=== PATIENT | male | born 1945 | race Caucasian/White ===

== ENCOUNTER → 2016-07-24 06:33 | Day surgery (SDC) | payer MEDICARE, OTHER ==
[~2016-07-24 06:33] MED LIST: Acetaminophen TAB* 325 MG PO PRN; Aspirin EC Low Dose* 81 MG TAB.EC PO SCH; Atorvastatin* 10 MG TAB PO SCH; Buffered Lidocaine 1% SYR 3ML* 3 ML/SYR SYRINGE INTRADERM ONE; Buffered Lidocaine 1% SYR 3ML* 3 ML/SYR SYRINGE ONE; Bupivacaine 0.5% W/EPI SDV* 30 ML VIAL ONE; Dexamethasone IV* 4 MG/ML 1 ML (4 MG) ONE; HYDROcodone/ACETAMIN 5-325 MG* 1 TAB ONE; HYDROcodone/ACETAMIN 5-325 MG* 1 TAB PO PRN; Ketorolac INJ* 30 MG/ML 1 ML VIAL ONE; Lidocaine 2% PF * 5 ML VIAL ONE; Lisinopril TAB* 10 MG PO SCH; Midazolam* 1 MG/ML 2 ML VIAL (2 MG) ONE; Ondansetron INJ* 2 MG/ML VIAL IV PRN; PROCHLORPERAZINE INJ 5 MG/ML 2 ML VIAL IV PRN; Propofol* 10 MG/ML 20 ML BTL IV PUSH ONE; Rocuronium* 10 MG/ML VIAL ONE; ceFAZolin 2 GM PREMIX (*) 2 GM/50 ML BAG IVPB ONE; fentaNYL* 50 MCG/ML 2 ML VIAL (100 MCG VIAL) IV PRN; fentaNYL* 50 MCG/ML 2 ML VIAL (100 MCG VIAL) ONE
[2016-07-24 11:09] VITALS: BP 136/77
--- NOTE | 2016-07-25 04:49 | OP ---
DATE OF OPERATION: 07/24/16 [facility] DATE OF : 43 SURGEON: Jovan Belle MD REGISTRATION REP: None. ANESTHESIOLOGIST: Brooks Cisneros MD ANESTHESIA: General endotracheal. PRE-OP DIAGNOSIS: Recurrent right inguinal hernia. POST-OP DIAGNOSIS: Recurrent right inguinal hernia. OPERATIVE PROCEDURE: Laparoscopic preperitoneal repair of right inguinal hernia with mesh. ESTIMATED BLOOD LOSS: 10 cc. IV FLUIDS: 800 mL crystalloids. SPECIMEN: None. DRAINS: None. COMPLICATIONS: None. COUNTS: Instrument, needle, and sponge counts were correct. DESCRIPTION OF PROCEDURE: The patient was brought to the operating room and placed on the table supine. Sequential compression devices were placed on both lower extremities. General anesthesia was administered. After the Bedolla catheter was placed, the abdomen was prepped and draped in the usual sterile fashion. Time-out was performed. Local anesthetic was infiltrated into the skin and soft tissue prior to making each incision. A curvilinear infraumbilical incision was created. The rectus sheath was identified and to the right of midline, a transverse incision was created anteriorly. The underlying muscles were retracted laterally and a preperitoneal balloon dissector was positioned down to the level of the pubic symphysis. This was insufflated under direct visualization and then a 12-mm blunt port was placed and carbon dioxide was insufflated to a pressure of 12 mmHg. Under direct visualization, two 5-mm trocars were placed in the lower midline. Inspection revealed that the inferior epigastric vessels had been dissected off the anterior abdominal wall and the first maneuver was to evaluate these vessels and create a proper plane of dissection to maintain the vessels in the anterior position. The dissection proceeded from medial to lateral identifying the pubic symphysis, pubic tubercle, Kendrick's ligament, and extending dissection laterally to the level of the anterior-superior iliac spine. There was a large indirect inguinal hernia sac which was reduced. The spermatic cord structures were dissected free from the sac. In doing so, the sac was entered and in order to close the sac, it was twisted upon itself and ligated with 2-0 Polysorb Surgitie. For the repair, a Bard 3DMax large patch was used. This was positioned into the preperitoneal space and it was secured with the CapSure tacker to the pubic tubercle, Kendrick's ligament, anterior abdominal muscles, and the mesh was laid out laterally to cover the direct, indirect, and femoral spaces. The hernia sac was attached to the upper portion of the mesh, so that it would not slip beneath it. After assuring hemostasis, the carbon dioxide was released and the ports were removed. There was noted to be a pneumoperitoneum and to release this, a peritoneoscopy was performed. Through the infraumbilical port site, the rectus sheath posteriorly was elevated along with the peritoneum and this was incised vertically. The gas was forthcoming. The blunt port was then placed into the peritoneal cavity and inspection of the groins revealed that there was no exposed mesh. The carbon dioxide was released from the abdomen. The rectus sheath was closed in 2 layers with 0 Polysorb for posterior and anterior layer. Skin incisions were all closed with 4-0 Monocryl. Steri-Strips were applied. The patient tolerated the procedure well, was extubated uneventfully. The scrotal contents were confirmed and Bedolla catheter removed. The patient was awake and then transferred to Recovery stable. CC: Sherri Pearson MD* [id number] #: [id number] KRISHAN
== END | disposition home or self-care (01) ==
LOC: OR 06:33
PROVIDERS: ATTEND Surgery
DX: K40.91 Unilateral inguinal hernia, without obstruction or gangrene, recurrent (principal); Z87.891 Personal history of nicotine dependence
CPT/HCPCS: C1781; J0690; J1100; J1885; J2250; J2704; J3010